=== PATIENT | female | born 1980 | race Two or more races ===

== ENCOUNTER 2021-08-08 15:24 | Emergency (ER) | payer SELFPAY ==
[~2021-08-08] VITALS: Ht 152.4 cm; Wt 54.5 kg
[2021-08-08 15:50] VITALS: BP 140/90
[2021-08-08] MEDS ORDERED: ALBU8HFA PO (17:53)
[2021-08-08] MEDS ORDERED: BENZ-38 PO (17:53)
== END 2021-08-08 18:08 | disposition home or self-care (01) ==
LOC: ER 15:25
DX: J41.0 Simple chronic bronchitis (principal); R42 Dizziness and giddiness; F17.210 Nicotine dependence, cigarettes, uncomplicated; Z79.899 Other long term (current) drug therapy
CPT/HCPCS: 71045; 99283